=== PATIENT | male | born 1960 | race Caucasian/White ===

== ENCOUNTER 2021-03-23 19:38 | Inpatient (IN) | payer OTHER, SELFPAY ==
--- NOTE | ~2021-03-23 | XR_ITS ---
EXAMINATION: XR chest 1V portable INDICATION: Confusion, COVID exposure TECHNIQUE: Portable AP chest at 2025 hours COMPARISON: 09/16/2016 FINDINGS: There are patchy opacities in the mid and lower lung zones with a peripheral predominance. There is no pleural effusion or pneumothorax. The cardiomediastinal silhouette is normal. IMPRESSION: 1. Patchy bilateral airspace opacities in a pattern consistent with COVID 19 pneumonia. Reviewed, dictated and finalized at location F. OTTER IMPRESSION: 1. Patchy bilateral airspace opacities in a pattern consistent with COVID 19 pn eum[place].
--- NOTE | ~2021-03-23 | CT_ITS ---
EXAMINATION: CT cervical spine wo con DATE: 03/23/2021 20:40 INDICATION: Transient alteration of awareness TECHNIQUE: Computed tomography (CT) of the cervical spine was performed without intravenous contrast. The dose-length product (DLP) was 485.64 mGy-cm. Automated exposure control and iterative reconstruc tion technique were employed. COMPARISON: None FINDINGS: There is no fracture, dislocation, or subluxation. The vertebral body heights are maintaine d. There is moderate loss of intervertebral disc space height at C5-6. The odontoid is intact. The pr evertebral soft tissues are normal. There is mild multilevel facet and uncovertebral joint osteoarthr itis. IMPRESSION: 1. Mild cervical spondylosis without acute findings. Reviewed, dictated and finalized at location F. [employer]
--- NOTE | ~2021-03-23 | CT_ITS ---
EXAMINATION: CT brain wo con INDICATION: Transient alteration of awareness COMPARISON: None TECHNIQUE: Standard unenhanced head CT. The dose-length product (DLP) was 603.33 mGy-cm. The mA was a djusted according to patient size. Iterative reconstruction technique was employed. FINDINGS: There is no acute intraparenchymal hemorrhage. No evidence of mass lesion. No evidence of a cute infarction. There is mild periventricular and subcortical hypodensity probably related to small vessel ischemic disease. There is mild prominence of the sulci and ventricles related to cerebral atr ophy. Intracranial calcified cerebral atherosclerosis is noted. There are no extra-axial collections. There is no mass effect or midline shift. The orbits and soft tissues are unremarkable. The visualiz ed sinuses and mastoid air cells are well aerated. IMPRESSION: 1. No acute intracranial abnormality. 2. Age related findings. Reviewed, dictated and finalized at location F. [employer]
--- NOTE | ~2021-03-23 | XR_ITS ---
EXAMINATION: XR chest 1V portable EXAM DATE: 03/27/2021 06:04 INDICATION: F/U COVID and aspiration pneumonia. TECHNIQUE: Portable AP frontal chest x-ray was obtained. Comparison is made to prior examination from 03/23/2021. FINDINGS: Small to moderate amount of peripheral predominant opacities, distribution is consistent wi th COVID pneumonia. No pneumothorax or pleural effusion. No significant interval change. Cardiomedias tinal silhouette is normal. IMPRESSION: Small to moderate amount of bilateral peripheral opacities. Reviewed, dictated and finalized at location A. TANALYST
[2021-03-23 19:44] VITALS: BP 136/84; PULSE 109; RESP 18; TEMP 36.8; O2SAT 100
[2021-03-23] MEDS: LORazepam INJ (*CRX) 2 MG/ML VIAL IV PUSH (19:52)
[2021-03-23 20:13] LABS: Basophils Absolute Auto 0.1 K/mm3 (0.0-0.1); Basophils Percent Auto 0.5 % (0.2-1.2); Eosinophils Percent Auto 0.2 % (0-4.4); Hematocrit 43.3 % (42.0-52.0); Hemoglobin 14.5 g/dL (14.0-18.0); Immature Granulocyte Absolute 0.07 K/mm3 (0.00-0.031); Immature Granulocyte Percent A 0.4 % (0-0.5); Lymphocytes Absolute Auto 3.45 K/mm3 (0.9-3.2); Mean Corpuscular HGB Conc 33.5 g/dl (32-36); Mean Corpuscular Hemoglobin 31.3 pg (26-34); Mean Corpuscular Volume 93.5 fl (80-100); Mean Platelet Volume 9.8 fl (7.4-10.4); Monocytes Absolute Auto 1.3 K/mm3 (0.1-0.6); Monocytes Percent Auto 7.9 % (2.6-8.5); Neutrophils Absolute Auto 11.5 K/mm3 (1.3-6.7); Platelet Count Result 458 k/mm3 (150-375); Red Blood Count 4.63 M/mm3 (4.6-6.20); Red Cell Distribution Width 12.5 % (11.5-14.5); White Blood Count 16.5 K/mm3 (4.5-10.0)
--- NOTE | 2021-03-23 20:19 | ED.GENADULT ---
HPI - General Adult General Chief complaint: Psychiatric Symptoms Stated complaint: combative Time Seen by Provider: 03/23/21 20:11 Source: EMS and RN notes reviewed Mode of arrival: EMS Limitations: clinical condition History of Present Illness HPI narrative: Patient arrived to the ED by ambulance, UNresponsive, after 2 mg of Ativan IV. No significant other at the bedside, according to the triage that patient was found on the floor at home, combative agitated, had seizure-like activities lasted for 45 seconds, history of schizophrenia, not on any medications. Currently patient is unresponsive high likely secondary to Ativan . According to patient's sister who lives in [place], [place], [phone]. She told me that patient had a history of schizophrenia but does not take his medications, also told me that his father and his brother who the patient lives with had COVID in the last few days, does not have history of seizure. Also told me that patient was found on the floor by his brother at home 1 eye opened and the other one is closed and when they try to get him up, was very combative then 911 was called. Related Data Allergies Allergy/AdvReac Type Severity Reaction Status Date / Time No Known Allergies Allergy Verified 03/23/21 20:03 Review of Systems Review of Systems: ROS unobtainable: Yes unobtainable due to medical condition Exam Narrative: General appearance: Well-developed, well-nourished Skin: Normal color Head: Normocephalic, nontraumatic Eyes: Clear conjunctiva ENT: Oropharynx normal, ears normal, nose normal Neck: C-collar Chest and respiratory: Airway patent, no respiratory distress, no accessory muscle use Heart: Regular rate/rhythm Abdomen: Soft, nontender, no organomegaly, quiet bowel sounds Vascular: Normal peripheral pulses, normal capillary refill. Neurologic: Unresponsive Course Course Emergency Course: Stable Vital Signs Vital signs: Vital Signs Temperature 36.8 C 03/23/21 19:44 Pulse Rate 109 H 03/23/21 19:44 Respiratory Rate 18 03/23/21 19:44 Blood Pressure 136/84 03/23/21 19:44 Pulse Oximetry 100 03/23/21 19:44 Temperature 36.8 C 03/23/21 19:44 Pulse Rate 109 H 03/23/21 19:44 Respiratory Rate 18 03/23/21 19:44 Blood Pressure 136/84 03/23/21 19:44 Pulse Oximetry 100 03/23/21 19:44 Medical Decision Making MDM Narrative Medical decision making narrative: Patient was found on the floor at home by his brother, probably was postictal at that time. Patient drinks alcohol daily, probably secondary to alcohol. Patient also lives with his father at the brother who are infected with COVID in the last few days. Patient had history of schizophrenia and does not like to take medicine, does not have history of diabetes, blood glucose is elevated, patient's competitive behavior high likely was secondary to postictal. Differential Diagnosis Differential Diagnosis: Drugs, seizure, acute psychosis Vital Signs Vital Signs: Vital Signs Temperature 36.8 C 03/23/21 19:44 Pulse Rate 109 H 03/23/21 19:44 Respiratory Rate 18 03/23/21 19:44 Blood Pressure 136/84 03/23/21 19:44 Pulse Oximetry 100 03/23/21 19:44 Temperature 36.8 C 03/23/21 19:44 Pulse Rate 109 H 03/23/21 19:44 Respiratory Rate 18 03/23/21 19:44 Blood Pressure 136/84 03/23/21 19:44 Pulse Oximetry 100 03/23/21 19:44 Lab Data Result diagrams: 03/23/21 19:56 03/23/21 19:56 Labs: Lab Results 03/23/21 03/23/21 03/23/21 Range/Units 19:56 19:56 19:56 WBC 16.5 H (4.5-10.0) K/mm3 RBC 4.63 (4.6-6.20) M/mm3 Hgb 14.5 (14.0-18.0) g/dL Hct 43.3 (42.0-52
[2021-03-23 20:20] LABS: Add Urine Microscopic? YES; Appearance Urine Clear (Clear); Bacteria Urine Trace /hpf; Bilirubin Urine Negative (Negative); Blood Urine 1+ (Negative); Color Urine Yellow (Yellow); Glucose Urine UA Negative (Negative); Ketones Urine Negative (Negative); Leukocyte Esterase Ur Negative LEU/UL (Negative); Mucus Urine Rare /lpf; Nitrate Urine Negative (Negative); Protein Urine 2+ mg/dL (Negative); Specific Grav Ur 1.018 (1.001-1.035); Squamous Epithelial Cell Urine Rare /hpf (Few); Urobilinogen Urine Negative mg/dL (<2.0)
[2021-03-23 20:24] LABS: Ethanol < 10 mg/dL (<10)
[2021-03-23 20:27] LABS: Albumin Level 4.1 g/dL (3.5-5.1); Alkaline Phosphatase 116 U/L (38-126); Anion Gap 24 mmol/L (8-16); Bilirubin,Total 0.6 mg/dL (0.2-1.3); Blood Urea Nitrogen 7 mg/dL (9-20); Calcium 9.3 mg/dL (8.4-10.2); Carbon Dioxide 14 mmol/L (22-30); Chloride 102 mmol/L (98-107); Estimated CRCL calculation 74 ml/min; Estimated Glomerular Filt Rate > 60; Glucose 293 mg/dL (65-110); Potassium 3.5 mmol/L (3.4-5.0); Sodium 140 mmol/L (137-145)
[2021-03-23 20:32] LABS: Amphetamine Screen Urine Negative (Negative); Barbiturate Screen Urine Negative (Negative); Benzodiazepines Screen Urine Negative (Negative); Cannabinoid Screen Urine Negative (Negative); Cocaine Screen Urine Negative (Negative); Methadone Screen Urine Negative (Negative); Opiate Screen Urine Negative (Negative); Phencyclidine Screen Urine Negative (Negative)
[2021-03-23 20:40] LABS: Alanine Aminotransferase 58 U/L (4-50); Aspartate Amino Transferase 40 U/L (17-59)
[2021-03-23] MEDS: SODIUM CHLORIDE 0.9% IV 1,000 ML 999 ML IV CONT (21:29)
--- NOTE | 2021-03-23 21:33 | PC.NURSE ---
pt not tolerating BLOOD GAS, PROVIDER AWARE, LAB CANCELLED
[2021-03-23 23:42] VITALS: BP 168/121; PULSE 102; RESP 22; O2SAT 98
[2021-03-23] MEDS: THIAMINE HCL INJ 100 MG, FOLIC ACID INJ 1 MG, MULTIVITAMINS-12 INJ VIAL 1 5 ML, MULTIVI... IV CONT (23:51)
--- NOTE | 2021-03-23 23:54 | PM.IMHP ---
H&P: HPI History of Present Illness Date/Time: 03/23/21 23:54 Chief Complaint: Altered mental status Narrative: This is a 61-year-old male with past medical history significant for schizophrenia patient lives at home with his parents. Patient was brought to the emergency room by ambulance after he was found laying on the floor at home by his brother who was visiting he was unresponsive as well on route to the hospital the patient was witnessed to have seizure and received Ativan. At the time of my visit patient was post ictal unable to give any history. Most of the history was obtained from the emergency room doctor who was able to get hold of his sister the [place] in [place] according to his sister patient is noncompliant with his schizophrenia medications and the parents have been sick lately with COVID. Patient tested positive for COVID as well. Preliminary workup was significant for chest x-ray with lung infiltrates. Patient is being admitted for further evaluation management and treatment. Review of Systems Review of Systems: ROS unobtainable: Yes unobtainable due to medical condition (Post ictal) and unobtainable due to mental status (Post ictal) [facility] Social History Social History Smoking status: Never smoker Second hand tobacco smoke exposure: No Alcohol intake: current Substance use: never Substance use type: does not use Spiritual care concerns: No Meds Home Medications and Allergies Allergies Allergy/AdvReac Type Severity Reaction Status Date / Time No Known Allergies Allergy Verified 03/23/21 20:03 Vital Signs Vital Signs - 24 hr 03/23/21 19:44 03/23/21 23:42 Temperature 98.2 F Pulse Rate 109 H 102 H Respiratory Rate 18 22 H Blood Pressure 136/84 168/121 H Pulse Oximetry 100 98 Exam Narrative: Laying in [facility] Const: General: comfortable, no acute distress, well developed and other (Post ictal) Nutritional Appearance: average body habitus HENMT: Head: normal to inspection, normocephalic and atraumatic Ears: hearing grossly normal bilaterally Face and sinus: normal facial exam Eyes: General: appearance normal, both eyes and all related structures Alignment and Position: alignment normal Sclera: sclerae normal Pupils: Equal, round and reactive pupils present EOM: EOMs intact bilaterally Neck: Neck: normal visual inspection, full ROM, no lymphadenopathy, supple and no JVD Thyroid: thyroid normal Lymphatic: no lymphadenopathy noted Resp: Effort & Inspection: normal respiratory effort and able to speak in complete sentences Auscultation: clear to auscultation bilaterally, no crackles, no rales, no rhonchi and no wheezes Cardio: Jugular venous distension: no JVD Rate: regular rate Rhythm: regular rhythm Heart sounds: S1 normal heart sound present and S2 normal heart sound present GI: Inspection: normal to inspection GI Palp: Yes Soft to palpation, No Tenderness to palpation present (GI), No Guarding due to palpation present (GI), Yes No hepatosplenomegaly present and No Rebound tenderness present : General: Yes deferred Skin: General skin exam: pallor Rashes: no rashes Wounds: no wounds Neuro: General: CN's II-XI intact bilaterally and other (Postictal) Cranial nerves: Yes CN's II-XII intact bilaterally and Yes Equal, round and reactive pupils present Cognition (Neuro): abnormal cognition Gait exam (Neuro): Unable to assess gait Motor exam (neuro): 5/5 motor strength present throughout Extrem: General: normal to inspection, full ROM, no joint enlargement and no pedal edema H&P: Results Labs Labs: Short CBC 03/23/21 Range/Units 19:56 WBC 16.5 H (4.5-10.0) K/mm3 Hgb 14.5 (14.0-18.0) g/dL Hct 43.3 (42.0-52.0) % Plt Count 458 H (150-375) k/mm3 BMP 03/23/21 19:56 Sodium 140 Potassium 3.5 Chloride 102 Carbon Dioxide 14 L BUN 7 L Creatinine 1.10 Glucose 293 H Calcium 9.3 Kelsey
[2021-03-23] MEDS: SODIUM CHLORIDE 0.9% IV 1,000 ML 100 ML IV CONT (23:55)
[2021-03-24] VITALS (7 sets, daily range): BP systolic 133–150; BP diastolic 68–96; PULSE 73–98; RESP 16–18; TEMP 36.6–36.9; O2SAT 96–99
[2021-03-24 00:27] LABS: SARS-CoV-2 RNA PCR Positive
[2021-03-24 02:49] LABS: Alanine Aminotransferase 42 U/L (4-50); Anion Gap 7 mmol/L (8-16); Blood Urea Nitrogen 8 mg/dL (9-20); Calcium 8.2 mg/dL (8.4-10.2); Carbon Dioxide 24 mmol/L (22-30); Chloride 104 mmol/L (98-107); Estimated CRCL calculation 89 ml/min; Estimated Glomerular Filt Rate > 60; Glucose 176 mg/dL (65-110); Potassium 3.8 mmol/L (3.4-5.0); Prothrombin Time 13.4 Seconds (11.1-14.7); Sodium 135 mmol/L (137-145)
[2021-03-24 03:01] LABS: Basophils Absolute Auto 0.1 K/mm3 (0.0-0.1); Basophils Percent Auto 0.4 % (0.2-1.2); Hematocrit 36.7 % (42.0-52.0); Hemoglobin 12.6 g/dL (14.0-18.0); Immature Granulocyte Absolute 0.03 K/mm3 (0.00-0.031); Immature Granulocyte Percent A 0.3 % (0-0.5); Lymphocytes Absolute Auto 2.07 K/mm3 (0.9-3.2); Lymphocytes Percent Auto 18.1 % (18.3-44.2); Mean Corpuscular HGB Conc 34.3 g/dl (32-36); Mean Corpuscular Hemoglobin 31.3 pg (26-34); Mean Corpuscular Volume 91.1 fl (80-100); Mean Platelet Volume 9.7 fl (7.4-10.4); Monocytes Absolute Auto 1.3 K/mm3 (0.1-0.6); Monocytes Percent Auto 11.3 % (2.6-8.5); Neutrophils Percent Auto 69.9 % (45.5-73.1); Platelet Count Result 343 k/mm3 (150-375); Red Blood Count 4.03 M/mm3 (4.6-6.20); Red Cell Distribution Width 12.6 % (11.5-14.5); White Blood Count 11.5 K/mm3 (4.5-10.0)
[2021-03-24] MEDS: REMDESIVIR 200 MG/NS 250 ML 200 MG/250 ML BAG 250 MG IVPB (04:08)
[2021-03-24] MEDS: SODIUM CHLORIDE 0.9% IV 1,000 ML 100 ML IV CONT ×2 (10:53→22:59)
--- NOTE | 2021-03-24 12:29 | WPDNEURCNPN ---
Assessment and Plan Additional Plan 1. Seizure disorder with postictal state 2. Schizophrenia 3. COVID positive and is being treated with remdesivir where and Zithromax in addition to Zosyn for the possibility of aspiration pneumonia 4. Alcohol abuse disorder Consult date: 03/24/21 HPI: Rodger Garcia is a 61 year old male61 years old has been admitted to the hospital through the emergency room he complaints of change in the mental status. He was brought to the emergency room by ambulance after he was found laying on the floor at home by his brother who was visiting reportedly he was unresponsive and route to the hospital and he was noted to have a seizure which she received Ativan when he was seen by the hospital initially was postictal and most of the history was obtained from the emergency room physicians interview who got hold of his sister and lives in [place] and according to her patient is noncompliant with his treatment and also been sick lately with COVID infection in fact he tested positive COVID during this exists admission also. His past history is consistent with him being not smoke but current alcohol intaker Review of Systems Review of Systems: All systems reviewed & are unremarkable except as noted in HPI and below PMFSH Social History Social History Smoking status: Never smoker Second hand tobacco smoke exposure: No Alcohol intake: current Substance use: never Substance use type: does not use Spiritual care concerns: No Meds Home Medications and Allergies Home Medications Medication Instructions Recorded Confirmed Type No Home Medications 03/24/21 03/24/21 History Allergies Allergy/AdvReac Type Severity Reaction Status Date / Time No Known Allergies Allergy Verified 03/23/21 20:03 Vital Signs Vital Signs - 24 hr 03/23/21 19:44 03/23/21 23:42 03/24/21 01:30 Temperature 36.8 C 36.9 C Pulse Rate 109 H 102 H 96 Respiratory Rate 18 22 H 18 Blood Pressure 136/84 168/121 H 135/78 Pulse Oximetry 100 98 98 03/24/21 02:30 03/24/21 04:00 03/24/21 08:00 Temperature 36.6 C 36.9 C Pulse Rate 89 86 73 Respiratory Rate 18 18 Blood Pressure 133/69 150/96 H Pulse Oximetry 98 96 Exam Const: General: cooperative, comfortable and no acute distress Orientation/consciousness: oriented to person and oriented to place HENMT: Head: normocephalic Ears: hearing grossly normal bilaterally General nose exam: Normal external nose present Face and sinus: normal facial exam Mouth: Yes Normal oral and palatal mucosa present Eyes: General: appearance normal, both eyes and all related structures Visual Peralta: normal visual peralta by confrontation Alignment and Position: alignment normal Periorbital: periorbital findings normal Eyelids: eyelids normal Conjunctivae: conjunctivae normal Sclera: sclerae normal Cornea: corneas normal EOM: EOMs intact bilaterally Neck: Neck: normal visual inspection, full ROM and no lymphadenopathy Lymphatic: no lymphadenopathy noted Resp: Effort & Inspection: normal respiratory effort and able to speak in complete sentences Auscultation: clear to auscultation bilaterally Neuro: General: oriented to person, oriented to place and oriented to time Cranial nerves: Yes CN's II-XII intact bilaterally Cognition (Neuro): normal cognition Speech: normal speech Gait exam (Neuro): Unable to assess gait Deep tendon reflexes (DTR's): Right triceps reflex intensity grade: 1+, Left triceps reflex intensity grade: 1+, Rt Biceps (C5, C6): 1+, Left biceps reflex intensity grade: 1+, Right brachioradialis reflex intensity grade: 1+, Left brachioradialis reflex intensity grade: 1+, Right patellar reflex intensity grade: 1+, Left patellar reflex intensity grade: 1+, Right ankle reflex intensity grade: 1+ and Left ankle reflex intensity grade: 1+ Plantar Reflex Responses: downgoing: bilateral Coordination: [id number] test no
--- NOTE | 2021-03-24 12:39 | PM.IMPN ---
Progress Note: A&P Assessment and Plan (1) Observed seizure-like activity: Code(s): R56.9 - Unspecified convulsions Status: Acute Assessment and Plan: According to family no prior history of seizures Patient received Ativan and route to the hospital Will load with Keppra Seizure precautions CT of the head with no acute findings EEG Consult to neurology (2) 2019 novel coronavirus-infected pneumonia (NCIP): Code(s): U07.1 - COVID-19; J12.82 - Pneumonia due to coronavirus disease 2018 Status: Acute Assessment and Plan: Continue remdesivir Continue Zithromax Continue Zosyn for likely aspiration pneumonia as well superimposed Continue to monitor (3) Alcohol abuse: Code(s): F10.10 - Alcohol abuse, uncomplicated Status: Acute Assessment and Plan: CIWA protocol as needed Subjective Date/time seen: 03/24/21 12:39 Review of Systems Review of Systems: All systems reviewed & are unremarkable except as noted in HPI and below Exam Narrative: General: NAD. HEENT: Normocephalic, nontraumatic. Clear conjunctiva. Oropharynx normal, ears normal, nose normal, poor dentition. Supple. No JVD. Respiratory: No respiratory distress, no accessory muscle use Heart: Regular rate/rhythm Abdomen: Soft, nontender, no organomegaly, quiet bowel sounds Extremities: : Normal peripheral pulses. No clubbing, edema, cyanosis. Skin: Normal color. No lesions or rashes. Neuro: AOX3. No focal deficits. Objective Data Vital Signs Vital Signs: Vital Signs - 24 hr 03/23/21 19:44 03/23/21 23:42 03/24/21 01:30 Temperature 36.8 C 36.9 C Pulse Rate 109 H 102 H 96 Respiratory Rate 18 22 H 18 Blood Pressure 136/84 168/121 H 135/78 Pulse Oximetry 100 98 98 03/24/21 02:30 03/24/21 04:00 03/24/21 08:00 Temperature 36.6 C 36.9 C Pulse Rate 89 86 73 Respiratory Rate 18 18 Blood Pressure 133/69 150/96 H Pulse Oximetry 98 96 Intake/Output Intake/Output: Intake & Output 03/21/21 03/22/21 03/23/21 03/24/21 23:59 23:59 23:59 23:59 Intake Total 1000 1730 Output Total 1100 Balance 1000 630 Meds/Results Medications: Active Medications Generic Name Dose Route Start Last Admin Trade Name Freq PRN Reason Stop Dose Admin Sodium Chloride 1,000 mls @ 100 mls/hr 03/23/21 21:50 03/24/21 10:53 Normal Saline Iv IV CONT 100 mls/hr .Q10H MARIA T Administration Remdesivir 100 mg in 250 mls @ 250 mls/hr 03/24/21 22:00 IVPB 03/27/21 22:59 Q24H MARIA T Piperacillin/Tazobactam/Dextrose 3.375 gm in 50 mls @ 100 mls/hr 03/24/21 03:00 03/24/21 10:54 Zosyn 3.375 Gm/D5w 50ml Pm IVPB Infused Q6H MARIA T Infusion Levetiracetam 250 mg/ 750 mg 03/24/21 12:40 Levetiracetam 500 mg PO Q12HR MARIA T Lorazepam 0.5 mg 03/23/21 21:47 Lorazepam Inj (*Crx) 2 Mg/Ml Vial IV PUSH Q4H PRN Anxiety Ondansetron HCl 4 mg 03/23/21 21:47 Ondansetron Inj 4 Mg/2 Ml Vial IV PUSH Q4H PRN Nausea Radiology Results: ITS Impressions Chest X-Ray 03/23/21 20:48 IMPRESSION: 1. Patchy bilateral airspace opacities in a pattern consistent with COVID [address] 03/23/21 20:53 IMPRESSION: 1. No acute intracranial abnormality. 2. Age related findings. Cervical Spine CT 03/23/21 21:27 IMPRESSION: 1. Mild cervical spondylosis without acute findings. Labs Labs: Laboratory Results - last 24 hr 03/23/21 03/23/21 03/23/21 19:56 19:56 19:56 WBC 16.5 H RBC 4.63 Hgb 14.5 Hct 43.3 MCV 93.5 MCH 31.3 MCHC 33.5 RDW 12.5 Plt Count 458 H MPV 9.8 Immature Gran % (Auto) 0.4 Neut % (Auto) 70.0 Lymph % (Auto) 21.0 Dixon % (Auto) 7.9 Eos % (Auto) 0.2 Baso % (Auto) 0.5 Lymph # (Auto) 3.45 H Dixon # (Auto) 1.3 H Eos # (Auto) 0.0 Baso # (Auto) 0.1 Abs Immat Gran (auto) 0.07 H Absolute Neuts (auto) 11.5 H Absolute Nucleated RBC 0.0 Nucleated RBC %
[2021-03-24] MEDS: levETIRAcetam Tablet 250 MG, levETIRAcetam Tablet 500 MG 750 MG PO ×2 (13:10→22:58)
[2021-03-25] VITALS (7 sets, daily range): BP systolic 130–143; BP diastolic 83–93; PULSE 64–94; RESP 14–20; TEMP 36.4–37.1; O2SAT 95–99
[2021-03-25] MEDS: REMDESIVIR 100 MG/NS 250 ML 100 MG/250 ML BAG 250 MG IVPB ×2 (00:26→22:56)
[2021-03-25 07:01] LABS: INR 1.1; Prothrombin Time 13.7 Seconds (11.1-14.7)
[2021-03-25 07:09] LABS: Alanine Aminotransferase 33 U/L (4-50); Estimated CRCL calculation 81 ml/min; Estimated Glomerular Filt Rate > 60
[2021-03-25] MEDS: levETIRAcetam Tablet 250 MG, levETIRAcetam Tablet 500 MG 750 MG PO ×2 (08:45→21:24)
--- NOTE | 2021-03-25 11:10 | PM.IMPN ---
Progress Note: A&P Assessment and Plan (1) Observed seizure-like activity: Code(s): R56.9 - Unspecified convulsions Status: Acute Assessment and Plan: According to family no prior history of seizures Patient received Ativan and route to the hospital Will load with Keppra Seizure precautions CT of the head with no acute findings EEG Consult to neurology (2) 2019 novel coronavirus-infected pneumonia (NCIP): Code(s): U07.1 - COVID-19; J12.82 - Pneumonia due to coronavirus disease 2018 Status: Acute Assessment and Plan: Continue remdesivir Continue Zithromax Continue Zosyn for likely aspiration pneumonia as well superimposed Continue to monitor (3) Alcohol abuse: Code(s): F10.10 - Alcohol abuse, uncomplicated Status: Acute Assessment and Plan: CIWA protocol as needed Subjective Date/time seen: 03/25/21 11:10 Interval history: Pt seen for follow up for seizures; COVID 19; denies any seizure activity of SOB Review of Systems Review of Systems: All systems reviewed & are unremarkable except as noted in HPI and below Exam Narrative: General: NAD. HEENT: Normocephalic, nontraumatic. Clear conjunctiva. Oropharynx normal, ears normal, nose normal, poor dentition. Supple. No JVD. Respiratory: No respiratory distress, no accessory muscle use Heart: Regular rate/rhythm Abdomen: Soft, nontender, no organomegaly, quiet bowel sounds Extremities: : Normal peripheral pulses. No clubbing, edema, cyanosis. Skin: Normal color. No lesions or rashes. Neuro: AOX3. No focal deficits. Objective Data Vital Signs Vital Signs: Vital Signs - 24 hr 03/24/21 12:00 03/24/21 16:00 03/24/21 20:00 Temperature 36.9 C 36.9 C 36.6 C Pulse Rate 97 98 95 Respiratory Rate 18 18 16 Blood Pressure 133/68 139/89 142/89 H Pulse Oximetry 99 99 96 03/25/21 00:00 03/25/21 04:00 03/25/21 08:00 Temperature 36.7 C 36.6 C 37.1 C Pulse Rate 94 64 71 Respiratory Rate 16 16 14 Blood Pressure 139/93 H 136/88 135/83 Pulse Oximetry 96 99 97 Intake/Output Intake/Output: Intake & Output 0103/23/21 03/24/21 03/25/21 23:59 23:59 23:59 23:59 Intake Total 1000 3380 1170 Output Total 1750 1850 Balance 1000 1630 -680 Meds/Results Medications: Active Medications Generic Name Dose Route Start Last Admin Trade Name Freq PRN Reason Stop Dose Admin Sodium Chloride 1,000 mls @ 100 mls/hr 03/23/21 21:50 03/24/21 22:59 Normal Saline Iv IV CONT 100 mls/hr .Q10H MARIA T Administration Remdesivir 100 mg in 250 mls @ 250 mls/hr 03/24/21 22:00 03/25/21 01:26 IVPB 03/27/21 22:59 Infused Q24H MARIA T Infusion Piperacillin/Tazobactam/Dextrose 3.375 gm in 50 mls @ 100 mls/hr 03/24/21 03:00 03/25/21 09:15 Zosyn 3.375 Gm/D5w 50ml Pm IVPB Infused Q6H MARIA T Infusion Levetiracetam 250 mg/ 750 mg 03/24/21 12:40 03/25/21 08:45 Levetiracetam 500 mg PO 750 mg Q12HR MARIA T Administration Lorazepam 0.5 mg 03/23/21 21:47 Lorazepam Inj (*Crx) 2 Mg/Ml Vial IV PUSH Q4H PRN Anxiety Ondansetron HCl 4 mg 03/23/21 21:47 Ondansetron Inj 4 Mg/2 Ml Vial IV PUSH Q4H PRN Nausea Radiology Results: ITS Impressions Chest X-Ray 03/23/21 20:48 IMPRESSION: 1. Patchy bilateral airspace opacities in a pattern consistent with COVID [address] 03/23/21 20:53 IMPRESSION: 1. No acute intracranial abnormality. 2. Age related findings. Cervical Spine CT 03/23/21 21:27 IMPRESSION: 1. Mild cervical spondylosis without acute findings. Labs Labs: Laboratory Results - last 24 hr 03/25/21 03/25/21 06:11 06:11 PT 13.7 INR 1.1 Creatinine 1.00 Estim Creat Clear Calc 81 Estimated GFR > 60 ALT 33
[2021-03-26] VITALS (10 sets, daily range): BP systolic 119–163; BP diastolic 78–95; PULSE 73–101; RESP 14–18; TEMP 36.6–37.1; O2SAT 94–98
[2021-03-26] MEDS: levETIRAcetam Tablet 250 MG, levETIRAcetam Tablet 500 MG 750 MG PO ×2 (08:06→20:55)
[2021-03-26] MEDS: FOLIC ACID 1 MG TABLET PO (08:06)
[2021-03-26] MEDS: THIAMINE HCL 100 MG TABLET PO (08:06)
[2021-03-26] MEDS: MULTIVITAMINS THERAPEUTIC TAB (*BKC) 1 TABLET PO (08:06)
[2021-03-26 08:17] LABS: INR 1.1; Prothrombin Time 13.9 Seconds (11.1-14.7)
[2021-03-26 08:22] LABS: Alanine Aminotransferase 31 U/L (4-50); Estimated CRCL calculation 99 ml/min; Estimated Glomerular Filt Rate > 60
--- NOTE | 2021-03-26 15:53 | PM.IMPN ---
Progress Note: A&P Assessment and Plan (1) Observed seizure-like activity: Code(s): R56.9 - Unspecified convulsions Status: Acute Assessment and Plan: According to family no prior history of seizures Patient received Ativan and route to the hospital Loaded with Keppra Seizure precautions CT of the head with no acute findings awaiting EEG results and Neurologist F/U consult and discharge instructions. According to family no prior history of seizures Patient received Ativan and route to the hospital (2) 2019 novel coronavirus-infected pneumonia (NCIP): Code(s): U07.1 - COVID-19; J12.82 - Pneumonia due to coronavirus disease 2019 Status: Acute Assessment and Plan: Continue remdesivir Continue Zithromax Continue Zosyn for likely aspiration pneumonia as well superimposed CXR ordered. (3) Alcohol abuse: Code(s): F10.10 - Alcohol abuse, uncomplicated Status: Acute Assessment and Plan: CIWA protocol as needed no s/s of withdrawal at this time. slightly hyper during exam Additional Plan 1. Seizure disorder with postictal state 2. Schizophrenia 3. COVID positive and is being treated with remdesivir where and Zithromax in addition to Zosyn for the possibility of aspiration pneumonia 4. Alcohol abuse disorder Subjective Date/time seen: 03/26/21 15:53 Interval history: Ed was pleasant, slightly hyperactive, and standing in his room when I went to see him today. Tomorrow is his last day for Remdesivir. Neurology is to see him before discharge for follow up for seizures. He was loaded with Keppra and continues daily dosing. he denied any seizure concerns overnight or today. He denies any trouble breathing or chest pain or chest pressure. He is not having any anxiety or agitation or tachycardia or any other alcohol withdrawal symptoms. He remains on Zosyn for aspirate oriented ammonia. Repeating a chest x-ray to verify follow-up improvement. Review of Systems Review of Systems: All systems reviewed & are unremarkable except as noted in HPI and below ROS unobtainable: Yes unobtainable due to medical condition (Post ictal) and unobtainable due to mental status (Post ictal) Constitutional: Constitutional: Denies excessive sweating, Denies headache(s), Denies increased appetite, Denies snoring and Denies weight gain Eyes: Eyes: Denies exophthalmos, Denies diplopia, Denies floaters and Denies loss of peripheral vision ENT: Denies facial pain, Denies headache(s), Denies odynophagia and Denies tinnitus Respiratory: Respiratory: Reports chest congestion, Reports cough, Denies hemoptysis, Reports excessive phlegm production, Reports dyspnea and Denies snoring Gastrointestinal: Gastrointestinal: Denies odynophagia Neurologic: Denies headache(s) Endocrine: Endocrine: Denies excessive sweating Exam Narrative: General: NAD. HEENT: Normocephalic, nontraumatic. Clear conjunctiva. Oropharynx normal, ears normal, nose normal, poor dentition. Supple. No JVD. Respiratory: No respiratory distress, no accessory muscle use, cough and chest congestion noted . Heart: Regular rate/rhythm Abdomen: Soft, nontender, no organomegaly, quiet bowel sounds Extremities: : Normal peripheral pulses. No clubbing, edema, cyanosis. Skin: Normal color. No lesions or rashes. Neuro: AOX3. No focal deficits. Const: General: cooperative, comfortable, no acute distress, well developed and other (Post ictal) Nutritional Appearance: average body habitus Orientation/consciousness: oriented to person, oriented to place and oriented to time HENMT: Head: normal to inspection, normocephalic and atraumatic Ears: hearing grossly normal bilaterally General nose exam: Normal external nose present Face and sinus: normal facial exam Mouth: Yes Normal oral and palatal mucosa present Eyes: General: appearance normal, both eyes and all related structures Visual Peralta: normal visual peralta by confrontation Alignment a
[2021-03-26] MEDS: REMDESIVIR 100 MG/NS 250 ML 100 MG/250 ML BAG 250 MG IVPB (21:53)
[2021-03-27] VITALS: BP 144/90; PULSE 74; PULSE 79; RESP 18; TEMP 37.4; O2SAT 97
[2021-03-27 04:00] VITALS: BP 138/89; PULSE 77; PULSE 79; RESP 16; TEMP 36.8; O2SAT 97
[2021-03-27 08:00] VITALS: BP 143/99; PULSE 80; PULSE 99; RESP 16; TEMP 36.8; O2SAT 97
[2021-03-27] MEDS: MULTIVITAMINS THERAPEUTIC TAB (*BKC) 1 TABLET PO (10:05)
[2021-03-27] MEDS: FOLIC ACID 1 MG TABLET PO (10:05)
[2021-03-27] MEDS: levETIRAcetam Tablet 250 MG, levETIRAcetam Tablet 500 MG 750 MG PO (10:05)
[2021-03-27] MEDS: THIAMINE HCL 100 MG TABLET PO (10:05)
[2021-03-27 10:19] LABS: Basophils Absolute Auto 0.1 K/mm3 (0.0-0.1); Basophils Percent Auto 0.8 % (0.2-1.2); Eosinophils Absolute Auto 0.1 K/mm3 (0-0.3); Eosinophils Percent Auto 0.9 % (0-4.4); Hematocrit 40.4 % (42.0-52.0); Hemoglobin 13.7 g/dL (14.0-18.0); Immature Granulocyte Absolute 0.03 K/mm3 (0.00-0.031); Immature Granulocyte Percent A 0.3 % (0-0.5); Lymphocytes Absolute Auto 1.89 K/mm3 (0.9-3.2); Lymphocytes Percent Auto 21.2 % (18.3-44.2); Mean Corpuscular HGB Conc 33.9 g/dl (32-36); Mean Corpuscular Volume 91.4 fl (80-100); Mean Platelet Volume 10.2 fl (7.4-10.4); Monocytes Absolute Auto 0.9 K/mm3 (0.1-0.6); Monocytes Percent Auto 9.8 % (2.6-8.5); Platelet Count Result 248 k/mm3 (150-375); Red Blood Count 4.42 M/mm3 (4.6-6.20); Red Cell Distribution Width 12.5 % (11.5-14.5); White Blood Count 8.9 K/mm3 (4.5-10.0)
--- NOTE | 2021-03-27 10:30 | PM.DS ---
DS: Admitting Diagnosis Discharge Date 03/27/21 1030 Admitting Diagnosis New onset seizures/COVID pneumonia DS: Discharge Diagnosis Discharge Diagnosis (1) Observed seizure-like activity: Code(s): R56.9 - Unspecified convulsions Status: Acute Assessment and Plan: According to family no prior history of seizures Patient received Ativan and route to the hospital Loaded with Keppra Seizure precautions CT of the head with no acute findings awaiting EEG results and Neurologist F/U consult and discharge instructions. According to family no prior history of seizures Patient received Ativan and route to the hospital (2) 2019 novel coronavirus-infected pneumonia (NCIP): Code(s): U07.1 - COVID-19; J12.82 - Pneumonia due to coronavirus disease 2019 Status: Acute Assessment and Plan: Continue remdesivir Continue Zithromax Continue Zosyn for likely aspiration pneumonia as well superimposed CXR ordered. (3) Alcohol abuse: Code(s): F10.10 - Alcohol abuse, uncomplicated Status: Acute Assessment and Plan: CIWA protocol as needed no s/s of withdrawal at this time. slightly hyper during exam (4) Diabetes 1.5, managed as type 2: Code(s): E13.9 - Other specified diabetes mellitus without complications Status: Acute Assessment and Plan: Start on metformin DS: Summary Hospital Course Hospital Course: Patient is a 61-year-old male with a past medical history of schizophrenia who presented to the ED who was found on the floor by his brother in unresponsive state. Patient was brought to the hospital and was noted to have a witnessed seizure. Patient received Ativan. Patient was loaded on Keppra and has been doing okay since. CT of the head found no acute findings. EEG has been performed. Patient was also seen by Neurology who states patient will need a follow-up in 3-4 months. Patient was also tested positive for COVID-19. According the family patient has had a COVID positive test for a while however patient has not required any oxygen was given remdesivir and oral vitamins. Patient is feeling okay today. Patient would like to get the shower and shave his face and his head however advised that he keep his hair due to the weather outside. He denies any pain or shortness of breath except for when he exhales he states that he feels like something is getting his breath and gets stuck in his throat especially when he is talking. It looks is the patient is probably not compliant with his medications at this time. Labs have remained stable except for his glucose which has been relatively high in the 200s. A1c is pending. Probably will start patient on metformin 500 mg daily along with his Keppra 750 mg twice a day. Patient is stable to go home. Patient denies chest pain, shortness of breath, nausea, vomiting, diarrhea, constipation, weakness, fatigue. Status at Discharge Functional status at discharge: independent ambulation Overall status at discharge: patient is progressing back to baseline Time Spent with Patient Time attestation: Total time spent providing and/or coordinating discharge services:43 minutes Time spent: Greater than 30 minutes Specific discharge activities: Diagnostic testing, chart review, developing a treatment plan, education, care coordination documentation, physical exam, result review Exam Const: General: cooperative, comfortable, no acute distress and well developed Nutritional Appearance: average body habitus Orientation/consciousness: oriented to person, oriented to place and oriented to time HENMT: Head: normal to inspection, normocephalic and atraumatic Ears: hearing grossly normal bilaterally General nose exam: Normal external nose present Face and sinus: normal facial exam Mouth: Yes Normal oral and palatal mucosa present Eyes: General: appearance normal, both eyes and all related structures Visual Peralta: normal visual peralta by damaso
[2021-03-27 10:31] LABS: Alanine Aminotransferase 34 U/L (4-50); Albumin Level 3.7 g/dL (3.5-5.1); Alkaline Phosphatase 108 U/L (38-126); Anion Gap 7 mmol/L (8-16); Aspartate Amino Transferase 26 U/L (17-59); Bilirubin,Total 0.4 mg/dL (0.2-1.3); Blood Urea Nitrogen 7 mg/dL (9-20); Calcium 8.8 mg/dL (8.4-10.2); Carbon Dioxide 23 mmol/L (22-30); Chloride 107 mmol/L (98-107); Estimated CRCL calculation 99 ml/min; Estimated Glomerular Filt Rate > 60; Glucose 220 mg/dL (65-110); Potassium 3.7 mmol/L (3.4-5.0); Sodium 137 mmol/L (137-145)
[2021-03-27 10:48] LABS: Prothrombin Time 13.5 Seconds (11.1-14.7)
[2021-03-27 12:00] VITALS: BP 146/83; PULSE 86; PULSE 90; RESP 16; TEMP 37.2; O2SAT 97
[2021-03-27 16:00] VITALS: BP 138/85; PULSE 97; RESP 16; TEMP 36.7; O2SAT 96
[2021-03-27 16:26] LABS: Hemoglobin A1C 8.1 % (<5.7)
--- NOTE | 2021-03-28 07:45 | PC.NURSE ---
Outpatient referral faxed to [facility] for [facility].
--- NOTE | 2021-03-28 10:58 | WPDNEUROLOGY ---
Neurology EEG Report General Information Date of Study: 03/27/21 TEST eeg DIAGNOSIS seizure-like activity CONDITION OF RECORDING awake EEG NUMBER [id number] CLINICAL HISTORY patient unable to give any specific history EEG DESCRIPTION basic resting occipital frequency consists of low-voltage 8 to 9 hertz per 2nd alpha admixed with multiple movements and muscle artifacts as well as slow-wave eye movements artifacts. Hyperventilation not done. Photic stimulation not done. Non paroxysmal. Nonfocal. Nonlateralizing. IMPRESSION No significant abnormalities noted. tracing was compromised by multiple movement artifacts and sweat artifacts but again there is no evidence of any paroxysmal activity
== END 2021-03-27 17:25 | disposition home or self-care (01) | DRG 177 ==
LOC: ANHED 21:53 → ANH3MEDSUR 03-24 09:37
PROVIDERS: Emergency Medicine; Nurse Practitioner; Admitting Provider Internal Medicine; Emergency Provider Emergency Medicine; Visit Provider Nurse Practitioner Adult Health
DX: U07.1 COVID-19 (principal); J12.82 Pneumonia due to coronavirus disease 2019; J69.0 Pneumonitis due to inhalation of food and vomit; R56.9 Unspecified convulsions; F20.9 Schizophrenia, unspecified; R73.9 Hyperglycemia, unspecified; F10.10 Alcohol abuse, uncomplicated; Y90.9 Presence of alcohol in blood, level not specified
CPT/HCPCS: 36415; 51701; 70450; 71045; 72125; 80048; 80053; 80307; 81001; 82565; 83036; 84443; 84460; 85025; 85610; 95816; 96374; 99285; A9270; C9803; J2060; J2543; J3411; J3475; J7030; U0003; U0005